=== PATIENT | male | born 1995 | race Caucasian/White ===

== ENCOUNTER 2017-03-07 23:39 | Emergency (ER) | payer SELFPAY ==
[~2017-03-07] VITALS: Ht 170.2 cm; Wt 68.0 kg
[2017-03-08] MEDS ORDERED: SODIUM CHLORIDE 0.9% 1,000 ML IV ONE (00:32)
[2017-03-08] MEDS ORDERED: ONDANSETRON HCL 4MG/2ML VIAL IV STA (00:32)
[2017-03-08 01:13] LABS: HEMATOCRIT. 48.2 % (42.0-52.0); HEMOGLOBIN. 16.3 g/dL (14.0-18.0); MEAN CORPUSCULAR HEMOGLOBIN 30.6 pg (28.0-32.0); MEAN CORPUSCULAR VOLUME 90.9 fL (80.0-94.0); MEAN PLATELET VOLUME 8.9 fl (7.4-10.4); PLATELET 238 x1000/uL (130-400)
[2017-03-08 01:26] LABS: CARBON DIOXIDE 20 mEq/L (21-32); CHLORIDE 103 mEq/L (98-107); ETHANOL BLOOD < 10 mg/dL; TROPONIN I < 0.02 ng/mL (0.00-0.04)
[2017-03-08] MEDS ORDERED: SODIUM CHLORIDE 0.9% 1000ML BAG (SEPSIS BOLUS) IV SCH (01:45)
[2017-03-08] MEDS ORDERED: CEFTRIAXONE 1 G PREMIX 50 ML IV SCH (02:00)
[2017-03-08 02:20] LABS: PLATELET ESTIMATE NORMAL
[2017-03-08] MEDS ORDERED: AZITHROMYCIN 500 MG in DEXT 5% WATER 250 ML IV SCH (03:00)
[2017-03-08 05:09] LABS: *AMPHETAMINES SCREEN URINE PRESUMTIVE POSITIVE (NEGATIVE); *BARBITURATES SCREEN URINE NEGATIVE (NEGATIVE); *BENZODIAZEPINES SCREEN URINE PRESUMTIVE POSITIVE (NEGATIVE); *COCAINE SCREEN URINE NEGATIVE (NEGATIVE); CANNABINOID URINE SCREEN PRESUMTIVE POSITIVE (NEGATIVE); METHADONE URINE SCREEN NEGATIVE (NEGATIVE); OPIATES URINE SCREEN NEGATIVE (NEGATIVE); PHENCYCLIDINE URINE SCREEN NEGATIVE (NEGATIVE)
[2017-03-08 07:43] VITALS: BP 109/85
== END 2017-03-08 08:13 | disposition left against medical advice (07) ==
LOC: ER 23:39 → CANRESERV 03-08 07:27 → ENRESERV 03-08 07:27 → ER 03-08 08:13 → CANBEDREQ 03-08 08:24
DX: S09.90XA Unspecified injury of head, initial encounter (principal); S60.519A Abrasion of unspecified hand, initial encounter; Y04.2XXA Assault by strike against or bumped into by another person, initial encounter; R00.0 Tachycardia, unspecified; Y93.89 Activity, other specified; Y92.89 Other specified places as the place of occurrence of the external cause; E87.2 Acidosis; F15.10 Other stimulant abuse, uncomplicated
CPT/HCPCS: 36415; 70450; 71010; 72125; 80053; 80305; 83605; 83690; 83880; 84484; 85025; 87040; 87086; 93005; 96365; 96366; 96367; 96375; 99285; G0482; J0456; J0696; J2405; J7030; Z7610; J7060